=== PATIENT | female | born 1985 | race Caucasian/White ===

== ENCOUNTER → 2016-09-15 | Outpatient (CLI) | payer BC ==
--- NOTE | 2016-09-15 16:03 | CT ---
EXAMINATION TYPE: CT sinus wo con DATE OF EXAM: 09/15/2016 3:55 PM COMPARISON: NONE HISTORY: Pt states of pressure and congestion to right ear. CT DLP: [address] of the paranasal sinuses was performed in the axial and coronal planes. Bone and soft tissue settings are submitted. The paranasal sinuses demonstrate normal aeration and development. The paranasal sinuses are free of mucosal thickening or air fluid level. The osteal meatal units are patent bilaterally. The nasal septum is midline. No bony destructive changes are seen within the field of view. IMPRESSION: Normal unenhanced CT of the paranasal sinuses.
== END ==
LOC: RADCTMAIN 15:35
PROVIDERS: ATTEND Otolaryngology
DX: J32.9 Chronic sinusitis, unspecified (principal)
CPT/HCPCS: 70486

== ENCOUNTER → 2016-09-23 | Outpatient (CLI) | payer BC | END | disposition home or self-care (01) | LOC: LABWHC1 16:31 | PROVIDERS: ATTEND Otolaryngology | DX: J30.9 Allergic rhinitis, unspecified (principal) | CPT/HCPCS: 36415 ==

== ENCOUNTER → 2018-10-14 | Outpatient (CLI) | payer BC ==
[2018-10-14 10:52] VITALS: BP 128/80; PULSE 68; RESP 16; TEMP 98; BMI 28.3
--- NOTE | 2018-10-14 11:04 | P.GSHP ---
History of Present Illness H&P Date: 10/14/18 Chief Complaint: small nodule on aerolar area The patient is a 33 year old white female with a history of cystic acne. This started on her chest, and went to her face, legs and arms. She was following in [place]. This started when she was 28. She approximately 2 months ago developed an area on the right area region which was cystic in nature and then began draining. It is not healed and she wishes to have it evaluated. She has not had anything quite like this in the past. She has had cystic areas in her breast in the past related to the cystic acne. She was treated with Accutane but has been off this for 3-4 years. She does not know what triggers this, it is possibly stress induced. She also considers it may be hormonal in nature. She is not following with dermatology at this time. The patient does drink Coca-Cola 32 ounces every day, she did drinks several cups of coffee a day but stopped several weeks ago. She does smoke 1 pack per day for approximately 15 years. She is not exposed to secondhand smoke. Patient has never had a mammogram ultrasound of her breast. The patient takes doxycycline on a regular basis. She has never had a MRSA infection. She initially had some drainage from the area of concern in the right periareolar margin which was purulent in nature and this is resolved and she has some serous drainage from the site at this time. Family History: 1. maternal grandmother: uterine Hormonal History: menarche: 10 : 2, 1 child, 1 [place], first born at 22, breast fed: yes periods: irregular BCP: 15 years not now hormones: none Past surgical history 1. Tonsils and adenoids Medical history: 1. Polycystic kidney disease 2. Cystic acne 3. Hypertension Social history: Smoke: One pack per day for 15 years Alcohol: social/ twice a month Drugs: Negative - Constitutional Constitutional: Denies chills, Denies fever - EENT Eyes: denies blurred vision, denies pain Ears: deny: decreased hearing, tinnitus Ears, nose, mouth and throat: Denies headache, Denies sore throat - Breasts Breasts: bilateral: as per HPI - Cardiovascular Cardiovascular: Reports high blood pressure - Respiratory Comment: smoker 1 PPD/15 years asthma - Gastrointestinal Gastrointestinal: Denies abdominal pain, Denies diarrhea, Denies nausea, Denies vomiting - Genitourinary (Female) Comment: Polycystic kidney disease Genitourinary: Denies dysuria, Denies hematuria - Menstruation Menstruation: Reports cycle variable - Musculoskeletal Musculoskeletal: Denies myalgias - Integumentary Comment: cystic acne - Neurological Neurological: Denies numbness, Denies weakness - Psychiatric Psychiatric: Reports anxiety, Reports depression - Endocrine Endocrine: Reports weight change, Denies fatigue - Hematologic/Lymphatic Comment: aspirin - Allergic/Immunologic Allergic/Immunologic: Reports seasonal allergies Surgical - Exam BMI 28.3 - General well developed, well nourished, no distress - Eyes normal ocular movement - ENT no hearing loss, no congestion - Neck no masses, trachea midline - Respiratory normal expansion, normal respiratory effort, clear to auscultation - Cardiovascular Rhythm: regular Heart Sounds: normal: S1, S2 - Abdomen Abdomen: soft, non tender, no guarding, no rigid, no rebound - Integumentary Right breast periareolar region at 2:00 a small area of nodularity within opening on the skin approximately 5 mm in size with a minimal amount of serous drainage Left breast lower inner quadrant small skin lesion believed to be related to the cystic acne no active infection at the site - Musculoskeletal normal gait, normal posture - Psychiatric oriented to time, oriented to person, oriented to place, speech is normal, memory intact Breast Exam: Bra 36DD the patient complains of back, neck and shoulder pain related to her large breast Has sterling in her shoulders from her bra because her breasts are so heavy Breasts: Right breast: Multi-positional exam breasts are very large fibrocystic changes, in the periareolar region on the right at approximately 2 o'clock position a 5 mm opening with serous drainage posterior to this is some firmness believed to be related to a subdermal pocket Right axilla: No adenopathy of concern Left breast: Multi-positional exam large breast fibrocystic changes, in the lower inner area there is a pocket marked believed to be related to cystic acne no active infection Left axilla: No adenopathy of concern Assessment and Plan Assessment: Impression: 1. Chronic drainage right periareolar area 2. Cystic acne 3. Fibrocystic breast changes 4. History of cancer 5. Hypertension 6. Nicotine dependence 7. Anxiety/depression The patient has back pain, neck and shoulder pain related to her large breast size. She is interested reduction mammoplasty in the future. We will discuss for purposes of healing that it would be frederick for her to stop smoking, and additionally I would recommend that she decrease her caffeine intake. Plan: 1. Cultures draining area right periareolar region 2. Bilateral breast mammogram 3. Operative incision and drainage area of concern right periareolar region 4. Have counseled the patient to stop smoking 5. Medical management of medical conditions CC: Dr. Noguera, also to Lida Gomez
== END ==
LOC: WWCWWP 10:24
PROVIDERS: ATTEND Surgery
DX: N63.41 Unspecified lump in right breast, subareolar (principal)
CPT/HCPCS: 87070; 87077; 87186; 87205

== ENCOUNTER → 2018-11-07 | Outpatient (CLI) | payer BC ==
--- NOTE | 2018-11-08 11:45 | MM ---
Reason for exam: clinical finding. Baseline mammogram. History: Taking hormonal contraceptives beginning at age 12. Physical Findings: Nurse Summary: 1.5cm nodule in the right breast at 3 o'clock (nurse frieda). MG 3D Screening Mammo W/Cad Bilateral CC and MLO view(s) were taken. The breast tissue is heterogeneously dense. This may lower the sensitivity of mammography. No suspicious abnormality on the left. Right periareolar lesion appears in the skin, likely sebaceous cyst, ultrasound will be performed. These results were verbally communicated with the patient and result sheet given to the patient on 11/07/18. ASSESSMENT: Incomplete: need additional imaging evaluation, BI-RAD 0 RECOMMENDATION: Ultrasound of the right breast.
--- NOTE | 2018-11-08 11:48 | USB ---
Reason for exam: additional evaluation requested from abnormal screening. History: Taking hormonal contraceptives beginning at age 12. Physical Findings: Breast exam preformed at baseline screening. US Breast Workup Limited RT Right limited breast ultrasound including focal area of concern, retroareolar and axilla demonstrates a 1.7 x 0.9 x 2.5cm oval, vascular, solid lesion in skin at 3 o'clock. These results were verbally communicated with the patient and result sheet given to the patient on 11/07/18. ASSESSMENT: Suspicious, BI-RAD 4 RECOMMENDATION: Surgical consultation of the right breast. (appears as infected sebaceous cyst) Called Dr. Bowens with mammographic findings. Dr. Bowens's office to notify patient with additional instructions. PRELIMINARY REPORT CALLED AND FAXED TO DR. BOWENS ON 11/08/18
== END | disposition home or self-care (01) ==
LOC: RADMAMWWP 06:53
PROVIDERS: ATTEND Surgery
DX: Z12.31 Encounter for screening mammogram for malignant neoplasm of breast (principal); R92.8 Other abnormal and inconclusive findings on diagnostic imaging of breast
CPT/HCPCS: 77063; 77067

== ENCOUNTER 2018-11-22 07:38 | Day surgery (SDC) | payer BC ==
[2018-11-18 18:01] VITALS: BMI 28.5
[~2018-11-22 07:38] MED LIST: DEXAMETHASONE SOD PHOSPHATE 10 MG/ML 1 ML VIAL IV ONE; HEPARIN SODIUM,PORCINE 5,000 UNIT/ML 1 ML VIAL SQ ONE; LACTATED RINGERS 1,000 ML IV SCH; LIDOCAINE 1% 20 ML VIAL (10MG/ML) FOR IV START INTRADERMA PRN; MIDAZOLAM 2 MG/2 ML VIAL IV PRN; ONDANSETRON 4 MG/2 ML VIAL IVP ONE; SCOPOLAMINE 1.5MG/72HR PATCH TRANSDERM ONE; ceFAZolin IN SWFI 2 GM/20 ML SYRINGE IVP ONE
[2018-11-22] MEDS ORDERED: ceFAZolin IN SWFI 2 GM/20 ML SYRINGE IVP ONE (08:15)
[2018-11-22] MEDS ORDERED: HEPARIN SODIUM,PORCINE 5,000 UNIT/ML 1 ML VIAL SQ ONE (08:15)
[2018-11-22] MEDS ORDERED: LIDOCAINE 1% INJ 10MG/ML (20 ML MDV) ONE (08:37)
[2018-11-22] MEDS ORDERED: ROCURONIUM BROMIDE 10 MG/ML 10 ML VIAL IV ONE (08:37)
[2018-11-22] MEDS ORDERED: MIDAZOLAM 2 MG/2 ML VIAL ONE (08:37)
[2018-11-22] MEDS ORDERED: SUCCINYLCHOLINE CHLORIDE 100 MG/5 ML SYR IV ONE (08:37)
[2018-11-22] MEDS ORDERED: HYDROmorphone (PF) 1 MG/ML ONE (08:37)
[2018-11-22] MEDS ORDERED: fentaNYL (PF) 50 MCG/ML 2 ML AMP ONE (08:37)
[2018-11-22] MEDS ORDERED: KETOROLAC 30 MG/ML 1 ML VIAL ONE (08:37)
[2018-11-22] MEDS ORDERED: PROPOFOL 10 MG/ML 20 ML VIAL IV ONE (08:37)
[2018-11-22] MEDS ORDERED: LACTATED RINGERS 1,000 ML IV ONE (09:13)
[2018-11-22] MEDS ORDERED: LIDOCAINE 1% INJ 10MG/ML (20 ML MDV) SQ ONE (09:35)
--- NOTE | 2018-11-22 09:47 | P.OP ---
Date of Procedure: 11/22/18 Preoperative Diagnosis: Draining cystic lesion right periareolar breast Postoperative Diagnosis: Same Procedure(s) Performed: Right breast excision cystic lesion, opening of tract second area of drainage Anesthesia: KALLIA Surgeon: Judy Bowens Estimated Blood Loss (ml): 3 IV fluids (ml): 700 Pathology: other (Right breast tissue) Condition: stable Disposition: same day Indications for Procedure: Chronic draining cystic area by periareolar region, development of new draining area lateral to the initial site Operative Findings: Cystic nodule Description of Procedure: Miya is a 33-year-old white female with a history of cystic acne. She developed an area of firmness in the periareolar region with chronic draining of seropurulent fluid. Culture revealed staph epidermidis. The patient comes for excision of the cystic lesion and opening of any infected tracks. Recently a second area of drainage occurred lateral to the first area. There is question as to whether this was contiguous with the first area. The patient preoperatively consented to excision of the initial area with opening of the tract to the second area if necessary. The patient was taken to the operating room and following induction of anesthesia the right breast was prepped and draped in sterile fashion. An attempt at incision into the area of firmness in the medial areolar region was performed. This was very firm tissue and did not appear to be consistent with a fluctuant abscess. Incision around this area was performed and what appeared to be a cystic lesion which was very firm was excised. The area e xtended inferiorly and medially and a small opening in the skin was made to facilitate resection of this area. Additionally the tissues were opened to the second area that was tracking in the lateral aspect of the areola. No definite purulence was identified. Cultures were obtained. The wound was well irrigated. After being assured that hemostasis was attained several 5-0 nylon sutures were placed to partially close the area of the incision. A small opening was left for drainage of any infectious component. The patient tolerated the procedure in stable condition. All instrument and sponge counts were correct at the end of the case. The tissue that was removed was sent to pathology.
--- NOTE | 2018-11-22 09:49 | P.DS ---
Providers Attending physician: Judy Bowens Primary care physician: Lida Gomez Plan - Discharge Summary Discharge Rx Participant: Yes New Discharge Prescriptions: No Action Pseudoephedrine HCl [Sudafed] 30 mg PO Q4HR PRN PRN Reason: Congestion Cetirizine HCl [Zyrtec] 10 mg PO DAILY ALPRAZolam [Xanax] 0.5 mg PO HS PRN PRN Reason: Anxiety Doxycycline [Vibramycin] 100 mg PO BID Carvedilol [Coreg] 3.125 mg PO BID DULoxetine HCL [Cymbalta] 60 mg PO DAILY Omeprazole 20 mg PO DAILY Fluticasone Propionate [Flonase Allergy Relief] 1 spray EA NOSTRIL DAILY Montelukast [Singulair] 10 mg PO HS Hydrochlorothiazide [Hydrodiuril] 50 mg PO DAILY Kathie 1 tab PO DAILY Discharge Medication List ALPRAZolam [Xanax] 0.5 mg PO HS PRN 10/14/18 [History] Carvedilol [Coreg] 3.125 mg PO BID 10/14/18 [History] Cetirizine HCl [Zyrtec] 10 mg PO DAILY 10/14/18 [History] DULoxetine HCL [Cymbalta] 60 mg PO DAILY 10/14/18 [History] Doxycycline [Vibramycin] 100 mg PO BID 10/14/18 [History] Fluticasone Propionate [Flonase Allergy Relief] 1 spray EA NOSTRIL DAILY 10/14/18 [History] Omeprazole 20 mg PO DAILY 10/14/18 [History] Pseudoephedrine HCl [Sudafed] 30 mg PO Q4HR PRN 10/14/18 [History] Hydrochlorothiazide [Hydrodiuril] 50 mg PO DAILY 11/18/18 [History] Montelukast [Singulair] 10 mg PO HS 11/18/18 [History] Kathie 1 tab PO DAILY 11/22/18 [History] Follow up Appointment(s)/Referral(s): Judy Bowens MD [STAFF PHYSICIAN] - 1 Week Activity/Diet/Wound Care/Special Instructions: Do not drive today Patient may shower after 48 hours Discharge Disposition: HOME SELF-CARE
[2018-11-22 09:58] VITALS: TEMP 97.2
[2018-11-22] MEDS: HYDROmorphone 0.5 MG/0.5 ML SYRINGE IVP PRN ×2 (10:13→10:20)
[2018-11-22 10:17] VITALS: RESP 16
[2018-11-22 11:13] VITALS: BP 126/87; PULSE 76
== END 2018-11-22 12:24 | disposition home or self-care (01) ==
LOC: OR 07:38
PROVIDERS: ATTEND Surgery
DX: N60.81 Other benign mammary dysplasias of right breast (principal); L70.0 Acne vulgaris; N60.19 Diffuse cystic mastopathy of unspecified breast; I10 Essential (primary) hypertension; Q61.3 Polycystic kidney, unspecified; K21.9 Gastro-esophageal reflux disease without esophagitis; F41.9 Anxiety disorder, unspecified; F32.9 Major depressive disorder, single episode, unspecified; J30.2 Other seasonal allergic rhinitis; F17.210 Nicotine dependence, cigarettes, uncomplicated; Z79.82 Long term (current) use of aspirin; Z79.899 Other long term (current) drug therapy; Z79.2 Long term (current) use of antibiotics; Z80.49 Family history of malignant neoplasm of other genital organs
CPT/HCPCS: 19120; 88304; 87070; 87205; 87075; J2250; J1644; J1100; J2405; J2001; J3010; J1885; J1170 ×2; J0330; J2704; J0690

== ENCOUNTER → 2018-12-02 | Outpatient (CLI) | payer BC ==
[2018-12-02 12:42] VITALS: BP 121/87; PULSE 93; RESP 16; TEMP 98.3; BMI 29.2
--- NOTE | 2018-12-02 12:57 | P.PN ---
Progress Note - Text Progress Note Date: 12/02/18 Amanda is status post excision of an epidermal inclusion cyst in her right breast on . The cultures did not have any organisms. The patient is doing well at this time. Sutures to be removed. Since the patient was seen last she has developed in the contralateral breast an area which looks a possible irritation secondary to heat rashes possible fungal infection. We are going to provide nystatin cream to this area. Physical exam: Breasts: Area of biopsy well-healed sutures to be removed Left breast in the lower inner area there is some erythema which appears to be related to possible fungal infection nystatin to be of given Impression: 1. Benign right breast biopsy 2. Possible fungal infection left breast Plan: 1. Suture removal 2. Nystatin cream to affected area and left breast 3. Follow-up in 2 weeks CC: DR. Noguera, Lida Gomez [employer]
== END | disposition home or self-care (01) ==
LOC: WWCWWP 12:11
PROVIDERS: ATTEND Surgery
DX: Z53.9 Procedure and treatment not carried out, unspecified reason (principal)

== ENCOUNTER → 2018-12-07 | Outpatient (CLI) | payer BC, OTHER ==
[2018-12-07 15:36] VITALS: BP 119/82; PULSE 84; RESP 16; TEMP 98.5; BMI 29.8
--- NOTE | 2018-12-07 15:53 | P.PN ---
Progress Note - Text Progress Note Date: 12/07/18 Amanda is status post excision [place] [id number]. The cultures did not have any organisms. The patient is doing well at this time. Sutures were removed. Since the patient was seen last she had developed in the contralateral breast an area which looks a possible irritation secondary to heat rashes possible fungal infection, was treated with nystatin with improvement of this area. The patient however now has in the medial aspect of the left breast some areas which appeared to be related to cystic acne with small pustula-like formation. She is going to be given a prescription for Keflex. She will continue the nystatin to the inferior area of the breast. Physical exam: Breasts: Area of biopsy well-healed sutures removed Left breast in the lower inner area there is some erythema which appears to be related to possible fungal infection improved Medial aspect of the left breast in the area of small pustule-like formation believed to be related to cystic acne Impression: 1. Benign right breast biopsy 2. Possible fungal infection left breast, improving 3. Cystic acne to be treated with Keflex Plan: 1. Cystic acne to be treated with Keflex 2. Nystatin cream to affected area and left breast 3. Follow-up in 2 weeks CC: DR. Noguera, Lida Gomez NP
== END ==
LOC: WWCWWP 15:05
PROVIDERS: ATTEND Surgery
DX: Z53.9 Procedure and treatment not carried out, unspecified reason (principal)

== ENCOUNTER 2020-04-25 08:43 | Day surgery (SDC) | payer OTHER ==
[2020-04-24 10:41] VITALS: BMI 22.3
[~2020-04-25 08:43] MED LIST changes: -DEXAMETHASONE SOD PHOSPHATE 10 MG/ML 1 ML VIAL IV ONE; -HEPARIN SODIUM,PORCINE 5,000 UNIT/ML 1 ML VIAL SQ ONE; +LIDOCAINE 1% (10MG/ML) FOR IV START INTRADERMA PRN; -LIDOCAINE 1% 20 ML VIAL (10MG/ML) FOR IV START INTRADERMA PRN; -MIDAZOLAM 2 MG/2 ML VIAL IV PRN; -ONDANSETRON 4 MG/2 ML VIAL IVP ONE; -SCOPOLAMINE 1.5MG/72HR PATCH TRANSDERM ONE; -ceFAZolin IN SWFI 2 GM/20 ML SYRINGE IVP ONE
[2020-04-25 09:09] VITALS: RESP 16; TEMP 97
[2020-04-25] MEDS ORDERED: LIDOCAINE 1% INJ 10MG/ML (20 ML MDV) ONE (09:21)
[2020-04-25] MEDS ORDERED: PROPOFOL 10 MG/ML 20 ML VIAL IV ONE (09:21)
--- NOTE | 2020-04-25 10:01 | P.PCN ---
Date of Procedure: 04/25/20 Description of Procedure: Brief history: Patient is a pleasant 34-year-old female who presents for outpatient EGD and colonoscopy for evaluation of abnormal immunological findings in the serum and diarrhea. Patient had testing suggestive of celiac disease. Last EGD and colonoscopy in 2011. Procedure performed: Esophagogastroduodenoscopy with biopsy Colonoscopy with biopsy Estimated blood loss: Minimal. Preoperative diagnosis: Abnormal immunological findings in serum, diarrhea Anesthesia: [facility] [place] Procedure: After informed consent was obtained from the patient was brought into the endoscopy unit and IV sedation was administered by anesthesia under continuous monitoring. Initially upper endoscopy was done. The Olympus GF 190 video endoscope was inserted into the mouth and esophagus intubated without any difficulty and was gradually advanced into the stomach and duodenum and carefull y examined. The bulb and second part of the duodenum appeared normal, however there was some evidence of villous blunting and scalloping suggestive of celiac sprue with biopsies taken. The scope was then withdrawn into the stomach adequately insufflated with air and upon careful examination the antrum and body, cardia and fundus appeared normal, except for some mild scattered erythema in antrum and body suggestive of mild gastritis with biopsies taken. The scope was then withdrawn into the esophagus. The GE junction was located at 37 cm to the incisors and biopsied. It appeared regular with no erythema erosions or ulcerations. Rest of the esophagus appeared normal. Patient tolerated the procedure well. At this time the patient continued to remain sedation. Initial digital rectal examination was normal. Olympus CF 190 video colonoscope was then inserted into the rectum and gradually advanced to the cecum without any difficulty. Careful examination was performed as the scope was gradually being withdrawn. The prep was excellent. The cecum, ascending colon, transverse colon, descending colon, sigmoid colon and rectum appeared normal, with biopsies taken of the right colo n, left colon and a normal-appearing terminal ileum in the setting of diarrhea. Retroflexion was performed in the rectum and no lesions were noted. Patient tolerated the procedure well. Impression: 1. Mild gastritis. Suspected celiac disease. Biopsies of the duodenum, antrum body and GE junction. 2. Normal-appearing colon from rectum to cecum and normal-appearing terminal ileum with random biopsies taken of the terminal ileum, right colon and left colon. Recommendations: Findings of this examination were discussed with the patient as well as her family. Okay to resume diet. Okay to resume medications. Await pathology from biopsies. Follow up in GI clinic as previously scheduled for further management.
[2020-04-25 10:33] VITALS: BP 116/64; PULSE 85
== END 2020-04-25 10:37 | disposition home or self-care (01) ==
LOC: ORWHC2ENDO 08:43
PROVIDERS: ATTEND Internal Medicine
DX: R19.7 Diarrhea, unspecified (principal); K29.80 Duodenitis without bleeding; K63.89 Other specified diseases of intestine; K29.50 Unspecified chronic gastritis without bleeding; R76.8 Other specified abnormal immunological findings in serum; I10 Essential (primary) hypertension; J45.909 Unspecified asthma, uncomplicated; F17.210 Nicotine dependence, cigarettes, uncomplicated; Q61.3 Polycystic kidney, unspecified; F41.9 Anxiety disorder, unspecified; F32.9 Major depressive disorder, single episode, unspecified; K21.9 Gastro-esophageal reflux disease without esophagitis; Z88.4 Allergy status to anesthetic agent; Z79.899 Other long term (current) drug therapy; Z79.1 Long term (current) use of non-steroidal anti-inflammatories (NSAID); Z90.89 Acquired absence of other organs; Z98.890 Other specified postprocedural states
CPT/HCPCS: 81025; 88305; 45380; 43239; J2001; J2704

== ENCOUNTER 2020-05-30 11:39 | Inpatient (IN) | payer OTHER ==
--- NOTE | 2020-05-30 12:02 | ED ---
Abdominal Pain HPI - General Chief Complaint: Abdominal Pain Stated Complaint: acute pancreatitis Time Seen by Provider: 05/30/20 11:40 Source: patient, EMS Mode of arrival: EMS Limitations: no limitations - History of Present Illness Initial Comments: 34yo female with hx of PCKD on lasix -sees Dr. Bennett presenting for epigastric pain diagnosed with pancreatitis at [facility] sent here for continuity of care/GI. She states that a few weeks ago she had right-sided abdominal pain she had an ultrasound revealed no acute abnormalities she states she's been following up with her GI physician closely. She states the pain increased this morning and was more mid to left-sided and she presented to [facility] pt states that she was diagnosed with pancreatitis. Labs reveal elevated lipase 654, Cr 1.2, normal bilirubin 0.3 and liver enzyme levels, WBC 13.2, Hgb 13.4. Patient on arrival appears well nontoxic-continues to complain of mild abdominal discomfort. - Related Data Home Medications Medication Instructions Recorded Confirmed ALPRAZolam [Xanax] 0.5 mg PO HS PRN 10/14/18 04/25/20 Cetirizine HCl [Zyrtec] 10 mg PO DAILY 10/14/18 04/25/20 Doxycycline [Vibramycin] 100 mg PO BID 10/14/18 04/25/20 Fluticasone Propionate [Flonase 1 spray EA NOSTRIL DAILY 10/14/18 04/25/20 Allergy Relief] Omeprazole 40 mg PO QAM 10/14/18 04/25/20 Pseudoephedrine HCl [Sudafed] 30 mg PO Q4HR PRN 10/14/18 04/25/20 carvediloL [Coreg] 3.125 mg PO BID 10/14/18 04/25/20 Kathie 1 tab PO DAILY 11/22/18 04/25/20 traZODone HCL 50 mg PO HS 12/02/18 04/25/20 Allopurinol [Zyloprim] 100 mg PO HS 04/24/20 04/25/20 Escitalopram Oxalate [Lexapro] 15 mg PO HS 04/24/20 04/25/20 Furosemide [Lasix] 20 mg PO 1500 04/24/20 04/25/20 Furosemide [Lasix] 40 mg PO QAM 04/24/20 04/25/20 Ibuprofen [Motrin] 800 mg PO Q8H PRN 04/24/20 04/25/20 Multivitamins, Thera [Multivitamin 1 tab PO DAILY 04/24/20 04/25/20 (formulary)] Tolvaptan [Jynarque] 30 mg PO HS 04/24/20 04/25/20 Tolvaptan [Jynarque] 60 mg PO QAM 04/24/20 04/25/20 diphenhydrAMINE [Benadryl] 50 mg PO HS PRN 04/24/20 04/25/20 lisinopriL [Zestril] 5 mg PO HS 04/24/20 04/25/20 Allergies Allergy/AdvReac Type Severity Reaction Status Date / Time sertraline [From Zoloft] Allergy Anaphylaxis Verified 05/30/20 11:46 lidocaine AdvReac Swelling Verified 04/25/20 09:15 Review of Systems ROS Statement: Those systems with pertinent positive or pertinent negative responses have been documented in the HPI. ROS Other: All systems not noted in ROS Statement are negative. Past Medical History Past Medical History: Asthma, GERD/Reflux, Hypertension, Skin Disorder Additional Past Medical History / Comment(s): freq diarrhea with freq vomiting,rt upper quad abd pain hx polycystic kidney disease, abscess right breast-small amount of drainage-healed, feet & ankle swelling,complications with infection post surgery left breast History of Any Multi-Drug Resistant Organisms: ESBL Date of last positivie culture/infection: MDRO Source:: left breast incision Past Surgical History: Adenoidectomy, Tonsillectomy Additional Past Surgical History / Comment(s): breast reduction October 2019- recurrent surgeries x4 to left breast for infection complications Past Anesthesia/Blood Transfusion Reactions: No Reported Reaction Past Psychological History: Anxiety, Depression Smoking Status: Current some day smoker Past Alcohol Use History: Occasional Past Drug Use History: None Reported - Past Family History Mother Family Medical History: No Reported History General Exam - General Exam Comments Initial Comments: General: The patient is awake and alert, in no distress Eye: Pupils are equal, round and reactive to light, extra-ocular movements are intact. No nystagmus. There is normal conjunctiva bilaterally. No signs of icterus. Ears, nose, mouth and throat: There are moist mucous membranes and no oral lesions. Neck: The neck is supple, there is no tenderness or JVD. Cardiovascular: There is a regular rate and rhythm. No murmur, rub or gallop is appreciated. Respiratory: Lungs are clear to auscultation, respirations are non-labored, breath sounds are equal. No wheezes, stridor, rales, or rhonchi. Gastrointestinal: Soft, non-distended, epigastric abdominal tenderness to palpation, abdomen without masses or organomegaly noted. There is no rebound or guarding present. Musculoskeletal: Normal ROM, no tenderness. Strength 5/5. Sensation intact. Radial pulses equal bilaterally 2+. Neurological: A&O x 3. CN II-XII intact, There are no obvious motor or sensory deficits. Coordination appears grossly intact. Speech is normal. Skin: Skin is warm and dry and no rashes or lesions are noted. Psychiatric: Cooperative, appropriate mood & affect, normal judgment. Limitations: no limitations Course Vital Signs 05/30/20 11:41 Temperature 98.3 F Pulse Rate 72 Respiratory 16 Rate Blood Pressure 135/86 O2 Sat by Pulse 98 Oximetry Medical Decision Making - Medical Decision Making Patient is a transfer from [facility] Mild lipase elevation, CT revealed acute pancreatitis, pain persistent. Patient NPO, will be admitted for +IV hydration, pain control, GI consult.Dr. Melara agreeable to care plan. He spoke with accepting provider for [facility] group. Disposition Clinical Impression: Acute pancreatitis, Abdominal pain Disposition: ADMITTED IP TO THIS HOSP Condition: Stable Is patient prescribed a controlled substance at d/c from ED?: No Referrals: Neda An CRNP [Primary Care Provider] - 1-2 days Time of Disposition: 12:27 Decision to Admit Reason: Admit from EC Decision Date: 05/30/20 Decision Time: 12:27
[2020-05-30] MEDS ORDERED: NALOXONE 0.4 MG/ML 1 ML VIAL IV PRN (12:06)
[2020-05-30] MEDS: SODIUM CHLORIDE 0.9% 1,000 ML IV SCH ×2 (12:35→20:37)
[2020-05-30] MEDS: HYDROmorphone 0.5 MG/0.5 ML SYRINGE IVP PRN ×4 (12:36→21:33)
[2020-05-30] MEDS: ONDANSETRON 4 MG/2 ML VIAL IVP PRN ×2 (12:48→20:40)
[2020-05-30] MEDS ORDERED: FAMOTIDINE 20 MG TAB PO PRN (13:13)
[2020-05-30] MEDS ORDERED: ALPRAZolam 0.5 MG TAB PO PRN (13:13)
[2020-05-30] MEDS ORDERED: TOLVAPTAN 30 MG TABLET PO SCH ×2 (13:15→21:00)
[2020-05-30] MEDS: carvediloL 3.125 MG TAB PO SCH ×2 (14:38→20:38)
[2020-05-30] MEDS: LORATADINE 10 MG TAB PO SCH (14:38)
[2020-05-30] MEDS ORDERED: FUROSEMIDE 20 MG TAB PO SCH (15:00)
[2020-05-30] MEDS ORDERED: lisinopriL 5 MG TAB PO SCH (21:00)
[2020-05-31] MEDS: HYDROmorphone 0.5 MG/0.5 ML SYRINGE IVP PRN ×4 (01:01→11:47)
[2020-05-31] MEDS: SODIUM CHLORIDE 0.9% 1,000 ML IV SCH ×2 (05:03→11:47)
[2020-05-31] MEDS: LORATADINE 10 MG TAB PO SCH (08:19)
[2020-05-31] MEDS: carvediloL 3.125 MG TAB PO SCH (08:20)
[2020-05-31 08:48] VITALS: BP 117/78; PULSE 97; RESP 18; TEMP 98.1
[2020-05-31] MEDS ORDERED: FUROSEMIDE 40 MG TAB PO SCH (09:00)
[2020-05-31 11:23] LABS: Basophils # (A) 0.1 k/uL (0-0.2); Basophils % (A) 1 %; Eosinophils # (A) 0.2 k/uL (0-0.7); Eosinophils % (A) 3 %; HCT 37.8 % (34.0-46.0); HGB 12.6 gm/dL (11.4-16.0); Lymphocytes # (A) 1.8 k/uL (1.0-4.8); Lymphocytes % (A) 21 %; MCHC 33.4 g/dL (31.0-37.0); MCV 98.9 fL (80.0-100.0); Mean Platelet Volume 7.1; Monocytes # (A) 0.3 k/uL (0-1.0); Monocytes % (A) 4 %; Neutrophils # (A) 6.3 k/uL (1.3-7.7); Neutrophils % (A) 71 %; Platelet Count 364 k/uL (150-450); RBC 3.83 m/uL (3.80-5.40); RDW 13.8 % (11.5-15.5); WBC 8.9 k/uL (3.8-10.6)
[2020-05-31 11:33] LABS: Albumin 3.3 g/dL (3.5-5.0); Calcium 7.9 mg/dL (8.4-10.2); Potassium 3.9 mmol/L (3.5-5.1); Total Bilirubin 0.4 mg/dL (0.2-1.3); Total Protein 5.7 g/dL (6.3-8.2)
--- NOTE | 2020-05-31 14:26 | CONS ---
CONSULTATION DATE OF SERVICE: 05/31/2020. REASON FOR CONSULTATION: Acute pancreatitis. HISTORY OF PRESENT ILLNESS: The patient is a 34-year-old pleasant white female transferred from [facility] when she presented with epigastric pain and right-sided abdominal pain for the last 2 days duration. She apparently was noted to have mild elevation of lipase in the 600 range with normal serum transaminases. She also had a white count of 13.1. She had a CT of the abdomen and pelvis done that showed changes in the pancreas consistent with mild pancreatitis and gallbladder was normal. The patient was transferred here. She is doing better. Her pain is much improved. No nausea, no vomiting. Never had pancreatitis in the past. No history of alcohol use. No family history of pancreatitis. PAST MEDICAL HISTORY: Significant for hypertension, gastroesophageal reflux disease, anxiety, depression. PAST SURGICAL HISTORY: Adenoidectomy, tonsillectomy left breast surgery. MEDICATIONS: Medications at home include Sudafed, Coreg trazodone, Zyloprim, Lexapro, Lasix, multivitamin, Jynarque, Bentyl Lomotil, Zestril. SOCIAL HISTORY: No smoking, no alcohol use. FAMILY HISTORY: Unremarkable. REVIEW OF SYSTEMS: CARDIOPULMONARY: No chest pain or shortness of breath. : No dysuria or hematuria. MUSCULOSKELETAL: Unremarkable. SKIN: Unremarkable. ENDOCRINE: Unremarkable. PSYCHIATRIC: Unremarkable. NEUROLOGY: Unremarkable. GI: Newly diagnosed celiac disease 2 weeks ago. ENT/VISION: Unremarkable. CONSTITUTIONAL: No recent weight loss. No fever, chills, night sweats. PHYSICAL EXAMINATION: She appears comfortable. No apparent distress. VITAL SIGNS: Stable. Blood pressure is 136/78, pulse rate 97, temperature 98.1. HEENT: Examination unremarkable. Conjunctivae pink. Sclerae anicteric. Oral cavity no lesions. NECK: No JVD or lymph node enlargement. CHEST: Clear to auscultation. HEART: Regular rate and rhythm. ABDOMEN: Soft bowel sounds are positive. EXTREMITIES: No pedal edema. NEUROLOGIC: Alert and oriented x3. No focal deficits. LABS: WBC 8.9, hemoglobin 12.6, platelets normal. Basic metabolic panel is within normal limits. BUN and creatinine are 10 and 1.12. AST and ALT are normal. T bilirubin and alkaline phosphatase are normal. Lipase is down to 317. IMPRESSION: 1. Mild acute pancreatitis with slight elevation of lipase and CT showing mild inflammatory changes of the pancreas. Clinically patient doing well. Lipase is down to 317. Serum transaminases are all within normal limits. CT of the abdomen did not show any evidence of gallstones and patient has no history of alcohol abuse. Etiology of pancreatitis remains unclear. 2. Newly diagnosed celiac disease on a gluten free diet. 3. History of hypertension. 4. History of anxiety. RECOMMENDATIONS: 1. Start on clear liquid diet and advance as tolerated. 2. Continue with symptomatic and supportive care. 3. The patient can be discharged home today or tomorrow with outpatient followup in office in 2 weeks. Thank you for this consultation. MMODL / IJN: [id number] /
== END 2020-05-31 14:24 | disposition left against medical advice (07) | DRG 439 ==
LOC: EC 11:39 → 6PED 12:06
PROVIDERS: ADMIT Internal Medicine Sleep Medicine; ATTEND Internal Medicine Sleep Medicine
DX: K85.90 Acute pancreatitis without necrosis or infection, unspecified (principal); Q61.3 Polycystic kidney, unspecified; I10 Essential (primary) hypertension; J45.909 Unspecified asthma, uncomplicated; F32.9 Major depressive disorder, single episode, unspecified; F41.9 Anxiety disorder, unspecified; K21.9 Gastro-esophageal reflux disease without esophagitis; K90.0 Celiac disease; Z79.899 Other long term (current) drug therapy; Z88.8 Allergy status to other drugs, medicaments and biological substances; Z87.898 Personal history of other specified conditions; Z90.89 Acquired absence of other organs
CPT/HCPCS: 80053; 83690; 85025; 96374; 96375; 99285